=== PATIENT | female | born 1950 | race Caucasian/White ===

== ENCOUNTER → 2017-05-23 10:56 | Outpatient (CLI) | payer OTHER, SELFPAY | PROVIDERS: Visit Provider Obstetrics & Gynecology | DX: N39.0 Urinary tract infection, site not specified (principal) | CPT/HCPCS: 87086; 87088 ==

== ENCOUNTER → 2017-10-20 07:09 | Outpatient (CLI) | payer MEDICARE, OTHER, SELFPAY ==
[2017-10-20 11:21] LABS: AST(SGOT) 17 U/L (15-37); Alanine Aminotransfer ALT/SGPT 27 U/L (13-56); Albumin, Serum 3.6 g/dL (3.2-5.0); Alkaline Phosphatase 90 U/L (45-117); Bilirubin, Direct 0.13 mg/dL (0.00-0.30); Cholesterol 137 mg/dL (200); Globulin 3.5 g/dL (2.2-4.2); High Density Lipoprotein 49 mg/dL; Protein, Total 7.1 g/dL (6.4-8.2); Triglycerides 116 mg/dL; Very Low Density Lipoprotein 23 mg/dL (5-40)
== END ==
PROVIDERS: Family Provider Family Medicine; PCP Family Medicine; Visit Provider Internal Medicine Cardiovascular Disease
DX: E78.5 Hyperlipidemia, unspecified (principal); Z79.899 Other long term (current) drug therapy
CPT/HCPCS: 36415; 80061; 80076

== ENCOUNTER → 2019-05-10 06:04 | Outpatient (CLI) | payer MEDICARE, BC, SELFPAY ==
[2019-04-30 07:56] VITALS: BMI 36.5
--- NOTE | 2019-05-10 16:24 | STRESSREP_ITS ---
Stress Test Report Exercise myocardial perfusion stress test. 69-year-old lady with a history of previous angioplasty and stenting to the proximal left anterior descending artery. Stress protocol: Resting EKG demonstrates normal sinus rhythm with a rate of 60 bpm. The patient exercised according to regular Vincent protocol for total duration of 7 minutes t he maximum heart rate attained was 160 bpm which was 104% of maximum predicted heart rate the maximum workload was 8.5 metabolic equivalents. At rest there were no ST or T wave changes no suggest ischemia peak exercise upsloping ST changes were noted with no meet the criteria for ischemia. The resting blood pressure was 140/82 with a peak blood pressure 158/60 mmHg. No clinical angina was noted the test was terminated due to target heart rate being achieved as well as dyspnea. Occasional premature ventricular complex was noted. Myocardial perfusion protocol. 11.4 mCi of technetium 99m sestamibi was injected at rest. The patient exercised according to regular Vincent protocol for 7 minutes at peak exercise 32.7 mCi of technetium 99m sestamibi was injected stress images were obtained stress and rest images were reconstructed and compared in the short axis vertical and horizontal long axis. Gated images were also obtained Perfusion SPECT analysis: Review of the images demonstrate normal uptake of tracer noted in all areas of myocardium except for the mid to distal anterior wall and apex. The resting images demonstrate a similar pattern suggestive of a previous distal anterior a pical infarct. No obvious ischemia is noted. Gated SPECT analysis: The gated ejection fraction is 55%. Conclusion: Exercise myocardial perfusion stress test with no evidence of ischemia noted at a moderate workload. Previous distal anterior and apical infarct noted. Preserved ejection fraction
== END ==
PROVIDERS: Family Provider Family Medicine; PCP Family Medicine; Referring Provider Internal Medicine Cardiovascular Disease; Visit Provider Internal Medicine Cardiovascular Disease
DX: I25.2 Old myocardial infarction (principal)
CPT/HCPCS: 78452; 93017; A9500; A4216

== ENCOUNTER → 2020-04-25 | Outpatient (CLI) | payer MEDICARE, SELFPAY ==
[2020-04-25 15:32] VITALS: BMI 34.9
[2020-04-25 18:26] LABS: Color, Urine Yellow (Yellow); Glucose, Dipstick Normal (Normal); Ketone-Dipstick Negative (Negative); Leukocyte Esterase-Dipstick Negative /ul (Negative); Nitrite-Dipstick Negative (Negative); Occult Blood-Urine Negative /ul (Negative); Protein-Dipstick Negative (Negative); Urine Bilirubin Dipstick Negative (Negative); Urine Clarity Sl. Cloudy (Clear); Urine Urobilinogen Normal (Normal)
== END | disposition home or self-care (01) ==
LOC: LABSPEC 18:18
PROVIDERS: PCP Family Medicine; Visit Provider Physician Assistant Surgical
DX: N30.00 Acute cystitis without hematuria (principal)
CPT/HCPCS: 81002; 87086; 87088